=== PATIENT | male | born 1990 | race Caucasian/White ===

== ENCOUNTER 2017-10-31 12:46 | Emergency (ER) | payer MEDICAID, OTHER ==
[2017-10-31] MEDS: SOD CHLORIDE 0.9% 1,000 ML IV (13:01)
[2017-10-31 13:03] LABS: ADD MAN DIFF? NO
[2017-10-31 13:14] LABS: WHITE BLOOD COUNT 10.1 10^3/ul (4.8-10.8)
[2017-10-31 13:14] LABS: BASOPHILS % 0.2 % (0.0-2.0); HEMATOCRIT 32.9 % (42.0-52.0); HEMOGLOBIN 11.8 g/dl (14.0-18.0); LYMPHOCYTES # 1.8 10^3/ul (0.8-2.9); LYMPHOCYTES % 17.7 % (15.0-51.0); MEAN CORPUSCULAR HEMOGLOBIN 28.6 pg (29.0-33.0); MEAN CORPUSCULAR HGB CONC 35.9 g/dl (32.0-37.0); MEAN CORPUSCULAR VOLUME 79.7 fl (82.0-101.0); MEAN PLATELET VOLUME 8.8 fl (7.4-10.4); MONOCYTE # 1.2 10^3/ul (0.3-0.9); MONOCYTES % 12.2 % (0.0-11.0); NEUTROPHILS % 69.1 % (39.0-77.0); PLATELET COUNT 126 10^3/UL (140-415); RED BLOOD COUNT 4.13 10^6/ul (4.70-6.10); RED CELL DISTRIBUTION WIDTH 13.8 % (11.5-14.5)
[2017-10-31] MEDS: HALOPERIDOL 5 MG INJ IV ×2 (13:19→17:01)
[2017-10-31 13:31] LABS: ANION GAP 18 (8-16); BLOOD UREA NITROGEN 6 mg/dl (7-20); CALCIUM 7.8 mg/dl (8.4-10.2); CARBON DIOXIDE 27 mmol/L (21-31); CHLORIDE 103 mmol/L (97-110); CREATININE 0.51 mg/dl (0.61-1.24); GLUCOSE 135 mg/dl (70-220); POTASSIUM 3.6 mmol/L (3.5-5.1); SODIUM 144 mmol/L (135-144)
[2017-10-31] MEDS: IOHEXOL 300MG/ML 150 ML BTL (14:31)
[2017-10-31] MEDS: SOD CHLORIDE 0.9% 100 ML (14:31)
[2017-10-31] MEDS: MULTIVITAMINS 10 ML, THIAMINE 100 MG, FOLIC ACID 1 MG, MAGNESIUM SULFATE 2 GM in SOD CH... IV (15:02)
== END 2017-11-01 01:04 | disposition home or self-care (01) ==
LOC: E/R 11-01 01:04
DX: F10.120 Alcohol abuse with intoxication, uncomplicated (principal); R40.2342 Coma scale, best motor response, flexion withdrawal, at arrival to emergency department; R40.2132 Coma scale, eyes open, to sound, at arrival to emergency department; R40.2242 Coma scale, best verbal response, confused conversation, at arrival to emergency department
CPT/HCPCS: 36415; 70450; 71260; 72125; 74177; 80048; 80307; 82962; 85025; 93005; 96374; 96375; 99285-25

== ENCOUNTER 2017-11-01 20:34 | Emergency (ER) | payer MEDICAID ==
[2017-11-02] MEDS: HALOPERIDOL 5 MG INJ IM (00:45)
[2017-11-02] MEDS: LORAZEPAM 2 MG INJ IM (01:29)
[2017-11-02] MEDS ORDERED: ONDANSETRON 4 MG INJ (07:43)
[2017-11-02] MEDS: SILVER SULFADIAZINE 1% 25 GM CR TOP (07:45)
== END 2017-11-02 09:45 | disposition home or self-care (01) ==
LOC: E/R 20:34
DX: S90.811A Abrasion, right foot, initial encounter (principal); F10.929 Alcohol use, unspecified with intoxication, unspecified; X58.XXXA Exposure to other specified factors, initial encounter; Y92.9 Unspecified place or not applicable
CPT/HCPCS: 96372; 99284-25; J1630